=== PATIENT | female | born 2000 | race Caucasian/White ===

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

== ENCOUNTER 2022-06-29 13:39 | Emergency (ER) | payer MEDICAID, SELFPAY ==
[2022-06-29 13:40] VITALS: BP 150/81; PULSE 75; RESP 18; TEMP 35.7; O2SAT 99; BMI 34.7
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
== END 2022-06-29 14:30 | disposition home or self-care (01) ==
LOC: ED 14:12
PROVIDERS: Emergency Provider Emergency Medicine; Visit Provider Emergency Medicine
DX: S80.02XA Contusion of left knee, initial encounter (principal); S29.019A Strain of muscle and tendon of unspecified wall of thorax, initial encounter; V43.62XA Car passenger injured in collision with other type car in traffic accident, initial encounter
CPT/HCPCS: 99281; 99282

== ENCOUNTER 2025-05-21 21:10 | Emergency (ER) | payer SELFPAY ==
[2025-05-21 21:11] VITALS: BP 143/75; PULSE 79; RESP 18; TEMP 35.9; O2SAT 100; BMI 43.5
--- NOTE | 2025-05-21 22:04 | ED.VIS.FEGU ---
HPI HPI - Female History of Present Illness Chief Complaint: Vag Bleeding Informant: patient Associated Symptoms P: 0 Narrative Narrative: Patient is a 24-year-old female with no significant medical history presenting with pelvic cramping and heavy vaginal bleeding. She states her menstrual cycle is 6 days late and she started yesterday. She is been taking home test however they have been negative since her last home test was 2 days ago). She states she started menstrual cycle yesterday and is having increased cramping, clots/bleeding, low back pain and some nausea. She states today she had pain when inserting her tampon. She denies any vaginal discharge but states after the first 2 days of her menstrual cycle relates she did have some bloody spotting. She notes that she did have some associated urinary urgency. She did have an episode of diarrhea this morning. She took Midol earlier today with some help of her symptoms. She denies any history of any abdominal surgeries. Denies any vomiting, fever or chills. She never been before. Denies any abnormal vaginal discharge. Is concerned that she could be having a miscarriage and came in for further evaluation PFSH [facility] Home Medications ?Medication ?Instructions ?Recorded ?Last Taken ?Type NK 05/21/25 Unknown History Allergy/AdvReac Type Severity Reaction Status Date / Time No Known Allergies Allergy Verified 05/21/25 21:11 Surgical History Hx of tonsillectomy Social History Smoking Status: Current every day smoker tobacco type: cigarettes ROS ROS ED Constitutional Constitutional ED: Denies chills or fever(s) Gastrointestinal Gastrointestinal: Reports abdominal pain, diarrhea and nausea; Denies vomiting Genitourinary Genitourinary ED: Reports urinary frequency; Denies dysuria or hematuria Neurologic Neurologic: Denies weakness Psychiatric Psychiatric: Denies anxiety Hematologic/Lymphatic Hematologic/Lymphatic: Denies easy bleeding or easy bruising EXAM Physical Exam Const Vital Signs: 05/21/25 21:11 Temperature 96.7 F L Temperature Source Temporal Pulse Rate 79 Respiratory Rate 18 Blood Pressure 143/75 H Blood Pressure Mean 97 Pulse Ox 100 Positive well nourished and well developed General Appearance ED: well developed and NAD; Negative for pallor HEENT Reports moist mucous membranes Eyes EOMs intact bilaterally Neck supple Chest Wall inspection of chest normal and palpation of chest normal Resp normal respiratory effort and clear to auscultation bilaterally Cardio regular rate and regular rhythm GI normal to inspection, nondistended, normoactive bowel sounds and soft to palpation Auscultation: normoactive bowel sounds Palpation: Negative for tender, guarding or rigid Back/Spine no CVA tenderness Extremity normal to inspection Neuro oriented x3 Sensorium / Orientation: alert Motor Exam: Negative for general weakness Psych mental status grossly normal Skin no rashes or lesions noted General Skin Exam: Negative for pallor MDM MDM MDM Narrative Medical decision making narrative: Patient is evaluated for pelvic pain, heavy vaginal bleeding and delayed menstrual cycle. Is concern for possible versus miscarriage. Differential includes but menorrhagia, ectopic , acute blood loss anemia, UTI, pyelonephritis STI and miscarriage. Patient given Tylenol in the ER. Urinalysis and urine obtained which were largely negative not consistent with infection. States her bleeding is actually slowed down today. She is overall well-appearing with normal vital signs. Low suspicion for acute blood loss anemia or hemorrhage. Abdomen is soft with no peritoneal findings. I will treat conservative at this time with symptomatic treatment and given reassurance as her parents test is negative it very low likelihood of ectopic or incomplete miscarriage. Is counseled that if she continues to have symptoms she should return to the emergency room and/or recheck a test at home in about 5 days. If this is positive she should follow-up either with gynecology or return to the emergency room. She verbalized agreement understand this. Is given referral for gynecology. Given return precautions. Discharged home in stable condition. Lab Data Attestation: I reviewed the patient's lab results. Labs: Laboratory Results - last 24 hr 05/21/25 22:05 Urine Color Yellow Urine Clarity Clear Urine pH 6.0 Ur Specific [place] 1.010 Urine Protein 15 H Urine Glucose (UA) Normal Urine Ketones Negative Urine Occult Blood Negative Urine Nitrite Negative Urine Bilirubin Negative Urine Urobilinogen Normal Ur Leukocyte Esterase Negative Urine RBC 0-5 SEEN Urine WBC 0-5 SEEN Ur Squamous Epith Cells 0-5 SEEN Urine Bacteria 0 SEEN Urine Mucus 0 SEEN Urine Test Negative Discharge Plan Triage Chief Complaint: Vag Bleeding ED Provider: Evelyn Og Dx/Rx/DC Orders Clinical Impression: Abnormal bleeding in menstrual cycle Instructions: ED MENSTRUAL CRAMPING Prescriptions: No Action NK Primary Care Provider: Care Physician,No Primary Referrals: RUBEN OSBORNE APRN [Other] Radha Kessler DO [Med Staff - Active Staff, Obstetrics-Gynecology (OBGYN)] Activity Restrictions/Additional Instructions: Your test was negative today. This makes an ectopic or miscarriage highly unlikely. If you continue to have abnormal symptoms I do recommend rechecking test in 3 to 5 days. If you have worsening symptoms or severe pain please return the emergency room. Otherwise please follow-up with mutual fund analyst. Continue to alternate ibuprofen and Tylenol as needed for pain/discomfort Print Language: Wolof Disposition Disposition: Home, Self Care
[2025-05-21 22:10] LABS: Mucous, Urine 0 SEEN /hpf (<or=2+)
[2025-05-21 22:15] LABS: Color, Urine Yellow (Yellow); Glucose, Dipstick Normal (Normal); Ketone-Dipstick Negative (Negative); Leukocyte Esterase-Dipstick Negative /ul (Negative); Nitrite-Dipstick Negative (Negative); Occult Blood-Urine Negative /ul (Negative); Protein-Dipstick 15 mg/dl (Negative); Specific Gravity, Urine 1.010 (1.002-1.030); Urine Bilirubin Dipstick Negative (Negative)
[2025-05-21 22:19] LABS: Internal QC Validated? YES +Cl - CLEAR BKGD; Pregnancy, Urine Negative Negative
[2025-05-21 22:20] LABS: Record Kit Lot#,Urine Preg 980607
--- OUTSIDE RECORDS SUMMARY | 2025-05-21 22:37 | XMS RPT_ITS | CCD ---
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 Pressure Mean 104 Pulse Ox 99 Oxygen Delivery Method Room Air Room Air Physical Exam Const Vital Signs: 06/29/22 13:40 06/29/22 13:47 Temperature 96.2 F L Temperature Source Temporal Pulse Rate 75 Respiratory Rate 18 Respiratory Effort Yvonne (more content not included)... Normal [facility] COVID-19, Flu A/B, and RSV C [facility] 05-27-2022 Influenza A by PCR Not detected [facility] A Influenza B by PCR Not detected [facility] A RSV PCR Not Detected. Expected Result: Not Detected _ Method: Real-time, RT-PCR This assay was developed by [email or web address] and distributed under an Emergency Use Authorization (EUA) granted by the FDA for the qualitative detection of nucleic acids from SARS-CoV-2, Influenza A, Influenza B, and Respiratory Syncytial Virus. Provider and patient fact sheets can be found at https://www.fda.gov/m edia/082388/download and https://www.fda.gov/m edia/446054/download. [facility] SARS-CoV-2 (COVID-19) RNA RUSSELL+probe Ql (Unsp spec) Not detected [facility] Test Performed by [facility], [address] [place] [id number] [place] [address] - [facility] Group A Strep Screen By PCRo n 05-27-2022 Group A Strep Screen By PCR NOT Detected Expected Result: Not Detected Methodology - Real Time PCR (Cepheid) [facility] Test Performed by [facility], [address] [place] [id number] [place] [address] [facility] Group A Strep Screen by PCRo n 05-27-2022 Group A Strep Screen by PCR Group A Strep Screen by PCR --> Status: F NOT Detected Expected Result: Not Detected Methodology - Real Time PCR (Cepheid) Expected Result: Not Detected Methodology - Real Time PCR (Cepheid) Normal [facility] Comment on above: Performed By: #### G ASPC #### [place] [address] SARS-CoV-2, Flu A/B and RSVo n 05-27-2022 SARS-CoV-2 (COVID-19) RNA RUSSELL+probe Ql (Unsp spec) SARS-CoV-2 --> Status: F Not Detected. Flu A PCR --> Status: F Not Detected. Flu B PCR --> Status: F Not Detected. RSV PCR --> Status: F Not Detected. Expected Result: Not Detected _ Method: Real-time, RT-PCR This assay was developed by [email or web address] and distributed under an Emergency Use Authorization (EUA) granted by the FDA for the qualitative detection of nucleic acids from SARS-CoV-2, Influenza A, Influenza B, and Respiratory Syncytial Virus. Provider and patient fact sheets can be found at https://www.fda.gov/m edia/307775/download and https://www.fda.gov/m edia/779699/download. Expected Result: Not Detected _ Method: Real-time, RT-PCR This assay was developed by [email or web address] and distributed under an Emergency Use Authorization (EUA) granted by the FDA for the qualitative detection of nucleic acids from SARS-CoV-2, Influenza A, Influenza B, and Respiratory Syncytial Virus. Provider and patient fact sheets can be found at https://www.[facility].gov/m edia/678355/download and https://www.fda.gov/m edia/073657/download. Normal [facility] Comment on above: Performed By: #### C VFLR #### [facility] [address] [place] [address] , [address] CNOVon 11-15-2020 CNOV Office Visit (OTFGFL ) JULIET BARROS ([id number]) 2 F Date Time Provider Department 11/15/20 3:30 PM MARCO IYER OTFL During your visit today, we recorded the following information about you: Pulse Respiration Blood pressure Weight 68/minute 16/minute 100/60 86.6 kg Height 1.575 m Marco Iyer MD 11/15/2020 4:08 PM Signed Follow-up if any problems Marco Iyer MD 11/18/2020 5:56 PM Signed LUMMI: Juliet Barros is a 20 year old, White, female who returns, I am here about my surgery. She is 1 month s/p tonsillectomy, 10/18/2020. She had some bleeding 10/23/2020 that stopped with ice water gargles. She did go to [place] ED but did not need any treatment there. PHYSICAL EXAM: VS: BP 100/60 (BP Site: Left Arm, BP Position: Sitting, BP Cuff Size: Regular Adult) Pulse 68 Resp 16 Ht 157.5 cm (5' 2) Wt 86.6 kg (191 lb) LMP 10/13/2020 (Exact Date) BMI 34.93 kg/m? OC/OP: The lips and gums are without lesions. The tongue/oral mucosa is healthy. The hard/soft palate, tonsil fossa and posterior pharynx are without lesions. The teeth are unremarkable. The tonsillectomy sites are healed. OBJECTIVE: I reviewed with her that the pathology showed benign tonsil tissue. ASSESSMENT AND PLAN: I reviewed with the patient the P/O healing process ICD9: V67.09, ICD10: Z98.890. She is healed and has done well. Return if symptoms worsen or fail to improve. Marco Iyer MD Created using voice recognition software, some errors may have occurred. Corrections may be performed at a later date. Referring Provider: MARCO IYER [[id number]] Allergies As of Date: 11/15/2020 (No Known Allergies) Date Reviewed: 11/15/2020 Reviewed by: Marco Iyer - Fully Assessed Reason for Visit: Surgical Followup [104] Cmt: tonsillectomy Visit Diagnosis:History of surgery [Z98.890] Problem List As Of Date 11/15/2020 Noted Resolved Chronic tonsillitis [J35.01] 09/14/2020 Other instructions from your clinician: Follow-up if any problems Disposition: Return if symptoms worsen or fail to improve. Follow-up and Disposition History Recorded Letter Text Encounter Status:Closed by MARCO IYER MD on 11/18/20 [facility] 10-24-2020 [facility] Telephone (OTFGFL) JULIET BARROS ([id number]) 2 F Date Time Provider Department 10/24/20 [facility] During your visit today, we recorded the following information about you: Cathy Ramos CMA 10/24/2020 1:35 PM Signed Pt called stating she was in [place] ER yesterday due to a tonsil bleed. She was told if the blood clot falls off and it bleeds she should go back to the ER. She stated the blood clot is gone but she is not having any bleeding and wanted to make sure that was okay. I told her it was okay. She had no further questions. MADIE Singh MD 10/24/2020 2:25 PM Signed If she is not having any bleeding, that is very good. If she gets any further bleeding, gargle with the ice water again it will likely stop again. Allergies As of Date: 10/24/2020 (No Known Allergies) Date Reviewed: 10/18/2020 Reviewed by: Ritchie Da Silva) TAMIKO Roblero - Fully Assessed Reason for Visit: Clinical Update [1735] Cmt: tonsils Problem List As Of Date 10/24/2020 Noted Resolved Chronic tonsillitis [J35.01] 09/14/2020 Encounter Status:Closed by CATHY RAMOS CMA on 10/24/20 Normal [facility] CNPNon 10-22-2020 CNPN Telephone (OTFGFL) JULIET BARROS ([id number]) 2 F Date Time Provider Department 10/22/20 MARCO IYER OTFGFL During your visit today, we recorded the following information about you: Cathy Ramos CMA 10/22/2020 4:37 PM Signed Pt had tonsillectomy last and noticed yesterday that there is some grayish/black meléndez on the tonsil area. Is this normal? She has not noticed any blood in her saliva. MADIE Singh MD 10/22/2020 4:41 PM Signed That is normal. Cathy Ramos CMA 10/22/2020 5:32 PM Signed Called and gave pt Dr Iyer's msg. Pt stated she understood. Cathy Ramos CMA Allergies As of Date: 10/22/2020 (No Known Allergies) Date Reviewed: 10/18/2020 Reviewed by: Ritchie Da Silva) TAMIKO Rolbero - Fully Assessed Reason for Visit: Patient Question [1477] Prescriptions as of 10/22/2020 Sig: HYDROCODONE 5 MG-ACETAMINOPHE* Take 1 tablet by mouth every * Problem List As Of Date 10/22/2020 Noted Resolved Chronic tonsillitis [J35.01] 09/14/2020 Encounter Status:Closed by CATHY RAMOS CMA on 10/22/20 [facility] ANES POSTPROC EVALon 021 ANES POSTPROC EVAL HNO ID: [id number] Author: Thuy Cooper Service: Anesthesiology Author Type: Physician Type: Anesthesia Postprocedure Evaluation Filed: 10/18/2020 1:18 PM Note Text: POST ANESTHESIA EVALUATION NOTE : 2000 Procedure Summary Date: 10/18/20 Room / Location: [address] Anesthesia Start: 1012 Anesthesia Stop: 1058 Procedure: TONSILLECTOMY ADULT (N/A Throat) Diagnosis: Chronic tonsillitis Surgeons: Marco Iyer Responsible Provider: Thuy Cooper Anesthesia Type: general ASA Status: 1 Anesthesia Type: general Last vitals Vitals Value Taken Time BP 113/79 10/18/20 1156 Temp 36.6 ?C (97.9 ?F) 10/18/20 1057 HR SpO2 77 10/18/20 1130 Resp 15 10/18/20 1205 SpO2 92 % 10/18/20 1130 Vitals shown include unvalidated device data. Post Anesthesia Patient Status Patient Evaluation: PACU. Anticipated Disposition: phase 2 then home. Neurological Status: aware and responsive. Pulmonary Status: breathing comfortably on room air Airway Control: returned to baseline unsupported. Cardiovascular Status: stable. Pain Management: clinically adequate Postoperative Hydration: acceptable. Intraoperative Events: no significant anesthesia events Post Operative Nausea/Vomiting Status: no significant post operative nausea or vomiting Anesthetic Observations: Recommendation: continue current plan of care. SIGNATURE: Thuy Cooper MD PATIENT NAME: Juliet Barros DATE: October 18, 2020 TIME: 1:17 PM CSN: [id number] Normal [facility] ANES PRE-OPon 10-18-2020 ANES PRE-OP HNO ID: [id number] Author: Thuy Cooper Service: Anesthesiology Author Type: Physician Type: Anesthesia Preprocedure Evaluation Filed: 10/18/2020 9:07 AM Note Text: ANESTHESIOLOGY DAY OF SURGERY NOTE : 2000 Procedure(s) (LRB): TONSILLECTOMY ADULT (N/A) Surgeon(s): Marco Iyer Estimated body mass index is 36.21 kg/m? as calculated from the following: Height as of 09/14/20: 157.5 cm (5' 2). Weight as of 09/14/20: 89.8 kg (198 lb). Most recent hematocrit and potassium results: No results found for this basename: HCT,HEMATOCRIT,K,POTA SSIUM 20yo female with chronic tonsillitis. HCG negative today. Relevant Problems Other (+) Chronic tonsillitis I - PHYSICAL EVALUATION AIRWAY Patient intubated: No. Mallampati: I. TM distance: >3 FB. Neck ROM: full ROM without neurological symptoms. Mouth opening: adequate. DENTAL Dental findings: teeth intact. II - ANESTHESIA PLAN ASA Score: 1 Anesthetic Plan: general Airway type: ETT Current smoker: vapes. NPO Status: adequate Monitoring plan: standard ASA. Postoperative analgesic plan: parenteral or oral opioids. Anesthetic Risks, Benefits, Alternatives, Personnel Discussed. Consent obtained from: patient.Patient / Surrogate agrees to blood products: blood products not planned Significant changes in the patient condition since the History and Physical, not otherwise documented in primary service progress note: no. Potential Anesthesia issues that may suggest increased risk of complications or contraindication to planned procedure: none. No vitals data found for the desired time range. Facility-Administered Medications as of 10/18/2020 Medication Dose Route Frequency - lidocaine 10 mg/mL (1 %) 1-2 mg injection (XYLOCAINE) 0.1-0.2 mL INTRADERMAL PRN - lactated ringers infusion 5-30 mL/hr INTRAVENOUS CONTINUOUS No current outpatient medications on file as of 10/18/2020. I have interviewed and examined the patient. I have reviewed the medical record and/or the pre-anesthesia evaluation, pertinent labs, and test results. This contains updated information obtained within 48 hours of Surgery/Procedure. SIGNATURE: Thuy Cooper MD PATIENT NAME: Juliet Barros DATE: October 18, 2020 TIME: 8:25 AM CSN: [id number] Normal [facility] BRIEF OP NOTon 10-18-2020 BRIEF OP NOT HNO ID: [id number] Author: Marco Iyer Service: Otolaryngology Author Type: Physician Type: Brief Op Note Filed: 10/18/2020 11:03 AM Note Text: BRIEF OPERATIVE / PROCEDURE NOTE LOG ID: [id number] Surgery/Procedure Date: 10/18/2020 Incision/Procedure Start Time: 10:24 AM Incision Close/Procedure End Time: 10:45 AM Surgeon(s)/Procedural ist(s) and Podiatric Medicine Doctor(s): Marco Iyer MD No Additional Staff Pre-Op/Pre-Procedure Diagnosis: chronic tonsillitis Post-Op/Post-Procedur e Diagnosis: same Anesthesia/Procedure( s): Procedure(s) and Anesthesia Type: * TONSILLECTOMY ADULT - General Findings: c/w dx Estimated Blood Loss: 0 ml Drains: None Specimens: татьяна. tonsils Complications: None Dictation: #[id number] SIGNATURE: Marco Iyer MD PATIENT NAME: Juliet Barros DATE: October 18, 2020 TIME: 10:59 AM Normal [facility] HCG Preg Ur Qlon 10-18-2020 HCG ( test) Ql (U) Negative Normal Negative [facility] Comment on above: Order Comment: Speci men Type: URINE SPECIMEN Result Comment: This test is intended to aid in the early detection of . Very dilute urine samples, as indicated by a low specific gravity, may not contain technical account representative levels of hCG. This test detects intact hCG only. This test does not reliably detect hCG degradation products, including free-beta subunit and beta-core fragment. Therefore, this test may show reduced reactivity in urine after 8 weeks gestation. A number of conditions other than , including trophoblastic disease and certain non-trophoblastic neoplasms cause elevated levels of hCG. As with any assay employing mouse antibodies, the possibility exists for interference by human anti-mouse antibodies (HAMA) in the specimen. The test provides a presumptive diagnosis for . Performed By: #### 2 106-3 ####[facility] LAB[facility]IA [id number] [place] [address] [place] HISTORY PHYSICALon HISTORY PHYSICAL HNO ID: [id number] Author: Teresa Madison ([place]) Service: Anesthesiology Author Type: Physician Podiatric Medicine Doctor Type: HANDP Filed: 10/18/2020 10:07 AM Note Text: HISTORY AND PHYSICAL EXAMINATION Juliet Barros 2000 SERVICE DATE: 10/18/2020 SERVICE TIME: 9:59 AM PRIMARY CARE PHYSICIAN: Debbie Sanchez APRN.ALTERNATIVE DISPUTE RESOLUTION MEDIATOR SURGEON: Surgeon(s) and Role: * Marco Iyer - Primary ANESTHESIA: General DIAGNOSIS: Chronic tonsillitis [J35.01] PROCEDURE: Procedure(s): TONSILLECTOMY ADULT (N/A) Subjective CHIEF COMPLAINT: I'm here to have my tonsils out HPI: This is a 20 year old female who presents for a tonsillectomy. The patient states that approximately 4 years ago she began to have recurrent episodes of strept throat, typically 4-5 times a year. During these episodes she noted difficulty swallowing and breathing. She also notes intermittent dysphagia in between episodes of infection. She states she has frequent tonsil stones and also snores. She denies current dysphagia, painful swallowing or fever. She present for elective tonsillectomy. METS: Climb a flight of stairs or walk up a hill (5.50 METs) FUNCTIONAL STATUS: Independent PAST MEDICAL HISTORY Diagnosis Date - Strep throat Multiple episodes PAST SURGICAL HISTORY Procedure Laterality Date - NONE FAMILY HISTORY Problem Relation Age of Onset - No Known Problems Mother - No Known Problems Father Social History Tobacco Use - Smoking status: Never Smoker - Smokeless tobacco: Never Used - Tobacco comment: uses vap. last time 10/18/20 Substance Use Topics - Alcohol use: Never - Drug use: Never Prior to Admission medications as of 10/18/20 0942 Not on File ALLERGIES No Known Allergies COMPLETE REVIEW OF SYSTEMS: GENERAL: No weight loss, malaise or fevers RESPIRATORY: Negative for cough, hemoptysis, wheezing, COPD, dyspnea or shortness of breath Cardiac: Negative for chest pain, leg swelling, hypertension, CHF or palpitations GI: No nausea, vomiting, or diarrhea : No history of dysuria, frequency or incontinence MUSCULOSKELETAL: Negative for joint pain or swelling, back pain or muscle pain PSYCH: Negative for sleep disturbance, mood disorder and recent psychosocial stressors ENDOCRINE:*Denies diabetes and thyroid problems NEURO: No history of headaches, syncope, paralysis, seizures or tremors Negative for stroke, seizures or headaches. Heme/Onc: *No hx blood clots, clotting disorders, or cancer Objective PHYSICAL EXAM: 10/18/20 0827 BP: 122/63 Pulse: 89 Resp: 16 Temp: 36.7 ?C (98.1 ?F) TempSrc: Temporal SpO2: 98% Weight: 86.2 kg (190 lb) Height: 157.5 cm (5' 2) Body mass index is 34.75 kg/m?. MENTAL STATUS: alert, oriented to person, place and time HEENT:Bilateral tonsillar enlargement; Positive bilateral Normocephalic/atrauma tic, no lymphadenopathy, thyroid non-tender, without palpable masses/nodules or enlargement LUNGS: Lungs clear to auscultation, Good diaphragmatic excursion CARDIAC: Normal S1 and S2; no rubs, murmurs, or gallops ABDOMEN: Abdomen soft, non-tender, BS normal, No masses or organomegaly EXTREMITIES: Extremities normal, no deformities, edema, clubbing or skin discoloration. Good capillary refill., No ulcers Diagnostic tests reviewed for today's visit: Lab Value Units Date High Low HB No results within date range. HCT No results within date range. WBC No results within date range. PLT No results within date range. NA No results within date range. K No results within date range. GLUC No results within date range. BUN No results within date range. CREAT No results within date range. PTSEC No results within date range. INR No results within date range. APTT No results within date range. ALT No results within date range. AST No results within date range. TBILI No results within date range. TSH No results within date range. Lab Value Units Date High Low HCGQT No results within date range. UHCG No results within date range. HCG, BODY* No results within date range. Lab Value Units Date High Low ABORHD No results within date range. ABSCREEN No results within date range. No results found for: HBA1C Assessment/Plan ANESTHESIA FINDINGS: Intubation History: No prior intubation Significant Anesthesia Considerations: Has never had anesthesia FAMILY PROBLEMS WITH ANESTHESIA: no history of adverse anesthetic event There is no known pertinent medical condition which may affect bouchra-operative course PLAN Procedure Diagnosis: Chronic tonsillitis [J35.01] Planned Procedure: Procedure(s): TONSILLECTOMY ADULT (N/A) Planned Anesthetic: General SIGNATURE: Teresa Madison PA-C PATIENT NAME: Juliet Barros DATE: October 18, 2020 TIME: 9:59 AM PAGER/CONTACT #: [facility] OPERATIVE NOon 10-18-2020 OPERATIVE NO HNO ID: [id number] Author: Marco Iyer Service: Otolaryngology Author Type: Physician Type: Operative Report Filed: 10/19/2020 9:02 AM Note Text: [facility] - Operative Report - JULIET MCCAIN : 2000 AGE: 20. SEX: F PATIENT TYPE: A HOSP SVC: OTOL LOCATION: [facility] ATTENDING PHYSICIAN: MARCO IYER CSN NUMBER: [id number] DATE OF SURGERY/PROCEDURE: 10/18/2020 INCISION/PROCEDURE START TIME: 10:24 AM INCISION CLOSE/PROCEDURE END TIME: 10:45 AM PREOPERATIVE DIAGNOSIS: Chronic tonsillitis. POSTOPERATIVE DIAGNOSIS: Chronic tonsillitis. SURGEON: Marco Iyer MD FAGOTER: No Additional Staff SURGERY/PROCEDURE: Bilateral tonsillectomy. ANESTHESIA: General endotracheal. ESTIMATED BLOOD LOSS: 0. SPECIMEN: Bilateral tonsils. OPERATIVE INDICATIONS: This patient has a history of chronic tonsillitis. Informed consent was obtained from the patient for the surgery. DESCRIPTION OF PROCEDURE: The patient was brought to the operating room and had adequate general endotracheal anesthesia established. The patient was positioned and the preoperative surgical safety check was performed. The patient was draped in standard fashion. The mouth retractor was inserted. The right tonsil was dissected from superior to inferior pole using the BiZact device. Hemostasis was assured with the device. The left tonsil was removed in similar fashion. The mouth retractor was relaxed and then re-expanded after several minutes. There was continued complete hemostasis. The retractor was removed. The patient was awakened and extubated in the operating room. The postoperative surgical safety checklist was performed. The patient was transferred to the PACU in good condition having tolerated the procedure well. Marco Iyer MD BMS:[id number] Normal [facility] SURGICAL PATHOLOGYon 021 CASE REPORT Normal [facility] Comment on above: Order Comment: Speci men Type: TISSUE SPECIMEN Result Comment: Surg [facility] Pathology Report Case: [id number] Authorizing Provider: Marco Iyer Collected: 10/18/2020 10:25 AM [facility] Received: 10/19/2020 10:57 AM Pathologist: Kaitlin Todd MD Specimen: TONSILS BILATERAL Performed By: #### S ####[facility]ATORYCLIA [id number] [place] [address] CLINICAL HISTORY Chronic tonsillitis. Normal [facility] Comment on above: Order Comment: Speci men Type: TISSUE SPECIMEN Performed By: #### S ####[facility]ORATORYCLIA [id number] [place] [address] FINAL DIAGNOSIS Normal [facility] Comment on above: Order Comment: Speci men Type: TISSUE SPECIMEN Result Comment: A. T onsils, left and right, bilateral tonsillectomy Tonsillar tissue with follicular lymphoid hyperplasia. Performed By: #### S ####[facility]ORATORYCLIA [id number] [place] [address] FINAL PERFORMING LAB Normal [facility] Comment on above: Order Comment: Speci men Type: TISSUE SPECIMEN Result Comment: Diag nostic interpretation performed at [facility], [address] [place] [address] CLIA# [id number] Neurologist: Nahun Malhotra M.D. Performed By: #### S ####[facility]ORATORYCLIA [id number] [place] [address] GROSS DESCRIPTION Normal [facility] Comment on above: Order Comment: Speci men Type: TISSUE SPECIMEN Result Comment: A. T ONSILS BILATERAL. Received in formalin labeled tonsils bilateral are two segments of pink-trent, lobulated soft tissue measuring 3.5 x 2.5 x 2 cm and 3.5 x 2.4 x 1.5 cm. One aspect is trent-pink, glistening while the opposing aspect is trent-red and dull. Sectioning reveals trent, grumous material located within the crypts. The remaining cut surfaces are pink-trent and unremarkable. Scientific Research Manager sections are submitted in 2 cassettes. RSA/margaret Gross examination performed at [facility], [address] [place] [address] CLIA# [id number] Performed By: #### S ####[facility]ORATORYCLIA [id number] [place] [id number] CNOVon 09-14-2020 CNOV Office Visit (OTFGFL ) JULIET BARROS ([id number]) 2 F Date Time Provider Department 09/14/20 11:00 AM MARCO IYER [facility] During your visit today, we recorded the following information about you: Pulse Respiration Blood pressure Weight 64/minute 16/minute 110/70 89.8 kg Height 1.575 m Marco Iyer MD 09/14/2020 12:00 PM Signed Tonsillectomy A tonsillectomy is the removal of the tonsils. The surgery is done to treat difficulties in sleeping and to cure frequent infections. The procedure and recovery are discussed. What is a tonsillectomy? A tonsillectomy is the removal of your tonsils. Your tonsils are located in the back of your throat. Tonsils are part of your body's immune system, but removing them does not increase your risk for infection. Why is a tonsillectomy done? There are several reasons for a tonsillectomy. The two most common reasons are if: ? Your tonsils are causing difficulty in breathing during sleep. This is often seen as frequent snoring. ? You have throat infections that keep coming back (several times in a year), with infected and swollen tonsils (tonsillitis). Who gets tonsillectomies? Although it may seem like only children need to have their tonsils taken out, adults may also benefit from having their tonsils removed. How is a tonsillectomy done? A tonsillectomy can be performed in many ways. The surgery will be performed under general anesthesia. The surgery usually takes 30 to 60 minutes. You will not feel any pain while the doctor is removing the tonsils. All of the tonsils are usually removed, but some patients may benefit from a partial tonsillectomy. The surgeon will use the technique that is best for the particular patient. How long is the healing process after a tonsillectomy? Healing after a tonsillectomy can be different for each person: ? Pain is common and may get worse 3 to 4 days after the surgery. This pain is often worse in the morning and may last up to 2 weeks. Your doctor will design a medication plan to address your pain. ? There may be discoloration where the tonsils were removed. When the area is healed completely in about 3 to 4 weeks, the discoloration will be gone. ? You should plan on resting at home for at least a week after the tonsillectomy, and limit activity for 2 weeks. ? There is a risk of bleeding after a tonsillectomy. The risk decreases after 14 days. What should you eat after a tonsillectomy? After a tonsillectomy, a abraham to recovery is making sure that you drink enough fluids. Soft and/or cool foods often are easiest for about one week, but you may feel free to add things to your diet as long as you can tolerate the foods. You should still avoid hard and spicy foods. Recommended items include: ? Water or any other liquid ? Ice cream ? Smoothies ? Yogurt ? Puddings ? Applesauce ? Broth ? Mashed potatoes ? Scrambled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 and content) Trade Show Coordinator Relationship Specialty Start Date End Date Margot Soliman APRN - CNP [address] [facility] [address] [place] [id number] PCP - General Nurse Practitioner 05/23/22 Trade Show Coordinator Relationship Specialty Start Date End Date Margot Soliman APRN - CNP [address] [facility] [address] [place] [id number] PCP - General Nurse Practitioner 08/05/22 Trade Show Coordinator Relationship Specialty Start Date End Date Margot Soliman APRN.CNP PCP - General 12/25/21 Trade Show Coordinator Relationship Specialty Start Date End Date Margot Soliman APRN - ALTERNATIVE DISPUTE RESOLUTION MEDIATOR [address] [facility] [address] [place] [id number] PCP - General Nurse Practitioner 08/05/22 Trade Show Coordinator Relationship Specialty Start Date End Date Margot Soliman APRN - ALTERNATIVE DISPUTE RESOLUTION MEDIATOR [address] [id number] PCP - General Nurse Practitioner 08/05/22 Trade Show Coordinator Relationship Specialty Start Date End Date Margot Soliman APRN - ALTERNATIVE DISPUTE RESOLUTION MEDIATOR [address] [facility] [address] [place] [id number] PCP - General Nurse Practitioner 08/05/22 Goals (unrecognized section and content) Goals may be documented in a n alternate section Source Comments (unrecognize d section and content) In the event this informatio n is protected by the Federal Confidentiality of Alcohol and Drug Abuse Patient Records regulations: The Federal rules restrict any use of the information to criminally investigate or prosecute any alcohol or drug abuse patient.[facility] FOR RECORDS PERTAINING TO PATIENTS WHO ARE OR HAVE BEEN ENROLLED IN A CHEMICAL DEPENDENCY/SUBSTANCEABUSE PROGRAM, SOME INFORMATION MAY BE OMITTED. This clinical summary was aggregated from multiple sources. Caution should be exercised in using it in the provision of clinical care. This summary normalizes information from multiple sources, and as a consequence, information in this document may materially change the coding, format and clinical context of patient data. In addition, data may be omitted in some cases. CLINICAL DECISIONS SHOULD BE BASED ON THE PRIMARY CLINICAL RECORDS. [facility] [employer] [facility]. provides no warranty or guarantee of the accuracy or completeness of information in this document.
[2025-05-21 22:45] LABS: Red Blood Cells-Urine 0-5 SEEN /hpf (0-5); Squamous Epithelial Cells - UA 0-5 SEEN /hpf (5-10)
[2025-05-21 23:05] VITALS: BP 143/77; PULSE 72; RESP 17; TEMP 36.4; O2SAT 98
== END 2025-05-21 23:06 | disposition home or self-care (01) ==
PROVIDERS: Emergency Provider Emergency Medicine; Visit Provider Emergency Medicine
DX: N93.9 Abnormal uterine and vaginal bleeding, unspecified (principal); R35.0 Frequency of micturition; R10.9 Unspecified abdominal pain; R19.7 Diarrhea, unspecified; R11.0 Nausea; F17.210 Nicotine dependence, cigarettes, uncomplicated
CPT/HCPCS: 81001; 81025; 99282; A4216